=== PATIENT | female | born 1990 | race African-American/Black ===

== ENCOUNTER 2016-04-30 09:03 | Emergency (ER) | payer MEDICAID ==
[~2016-04-30] VITALS: Ht 165.1 cm; Wt 120.0 kg
[~2016-04-30 09:03] MED LIST: DICL50TA3 PO; IBUP600T26 PO; ROBA750T PO
[2016-04-30 09:05] VITALS: BP 135/67; PULSE 80; RESP 20; TEMP 98.1; O2SAT 99
--- NOTE | 2016-04-30 09:31 | PD ---
HPI Chief Complaint: Injury Time Seen by Provider: 09:26 Travel History International Travel<30 days: No Contact w/Intl Traveler<30days: No Traveled to known affect area: No History of Present Illness HPI 26-year-old female presents to the emergency department for evaluation of left shoulder pain that has been ongoing for over 2 months. Patient was seen approximately one month ago in the emergency Department was diagnosed with a muscle strain. She takes she took the diclofenac and Robaxin, but states that nothing works. She states the pain is worse with movement. She denies any specific injury, but states she does a lot of lifting in her job. The patient denies any fevers or chills. She has no loss of range of motion or loss of sensation. The patient has not taken anything [id number] for her pain since finishing the last prescriptions. She has not followed up outpatient with a physician. Patient denies any chance of . She has no chronic medical problems. Patient denies any chest pain. History Social History Alcohol Use: No Tobacco Use: No Allergies-Medications (Allergen,Severity, Reaction): Coded Allergies: No Known Allergies (Verified , 09/23/14) Reported Meds & Prescriptions Reported Meds & Active Scripts Active Robaxin (Methocarbamol) 750 Mg Tab 750 Mg PO QID PRN 2 tabs QID for 2 days, then 1 tab QID thereafter Diclofenac Sodium DR (Diclofenac Sodium) 50 Mg Tabdr 50 Mg PO BID Ibuprofen 600 Mg Tab 600 Mg PO Q8 PRN Review of Systems Except as stated in HPI: all other systems reviewed are Neg Physical Exam Narrative GENERAL: Well-developed well-nourished obese female patient, ambulatory. Afebrile. SKIN: Warm and dry. No erythema or warmth over left shoulder. HEAD: Normocephalic. Atraumatic. EYES: No scleral icterus. No injection or drainage. NECK: Supple, trachea midline. No JVD or lymphadenopathy. CARDIOVASCULAR: Regular rate and rhythm without murmurs, gallops, or rubs. Right radial pulses 2+. RESPIRATORY: Breath sounds equal bilaterally. No accessory muscle use. Lungs sounds are clear to auscultation. GASTROINTESTINAL: Abdomen soft, non-tender, nondistended. MUSCULOSKELETAL: No cyanosis, or edema. Patient has a normal grasp strength in the left hand. She has full range of motion of the left shoulder. The pain is easily reproduced with palpation and movement. Patient has full sensation the distal left upper extremity. Data Data Last Documented VS Vital Signs Date Time Temp Pulse Resp B/P Pulse Ox O2 Delivery O2 Flow Rate FiO2 04/30/16 09:05 98.1 80 20 135/67 99 Room Air [facility] Medical Screen Exam Complete: Yes Emergency Medical Condition: No Differential Diagnosis Muscle strain, chronic shoulder pain Narrative Course 26-year-old female presents to the emergency department for evaluation of left shoulder pain has been ongoing for several months. She has not followed up outpatient. She has been seen once the emergency department for this issue. Patient is not currently taking anything [id number]. There is no evidence of septic joint or acute injury. I instructed the patient on the need to follow up with a primary care physician or orthopedist for further workup. She is instructed to take [id number] ibuprofen as needed for pain, rest, warmth, elevate. A medical screening exam was performed: At the time of evaluation the presenting medical condition was determined not to be of an emergent nature. The patient was given the option of receiving additional care and opted to stay. Patient will be discharged with a prescription for ibuprofen. She is instructed on the need for outpatient follow up. She is to return for any acute , worsening of symptoms. Primary Impression: Trapezius muscle spasm Referrals: Orthopedist Primary Care Physician Patient Instructions: General Instructions, Muscle Strain (ED) Additional Instructions: Heating pad on low for 20 minutes 4-5 times daily. Take ibuprofen as instructed as needed with food for pain. Follow-up with a primary care physician or orthopedist for further evaluation. Return to the emergency department for any acute worsening of symptoms. Med/Other Pt SpecificInfo: Prescription(s) given Scripts Ibuprofen 600 Mg Poh825 Mg PO TID PRN (PAIN SCALE 1 TO 10) #21 TAB Ref 0 Prov:ChecoChey 04/30/16 Disposition: 01 DISCHARGE HOME Condition: Stable Checo,Chey CORADO Apr 30, 2016 09:31
[2016-04-30] MEDS ORDERED: IBUP-232 PO (09:38)
== END 2016-04-30 10:18 | disposition home or self-care (01) ==
LOC: NEPB 09:03
DX: M62.838 Other muscle spasm (principal)
CPT/HCPCS: 99283

== ENCOUNTER 2017-08-19 16:07 | Emergency (ER) | payer SELFPAY, MEDICAID ==
[2017-08-19] MEDS: TETANUS/DIPHTHERIA TOXOID ADULT 0.5 ML VIAL IM (16:38)
[2017-08-19] MEDS: IBUPROFEN 600 MG TAB PO (16:38)
== END 2017-08-19 17:36 | disposition home or self-care (01) ==
LOC: NEPK 16:07
DX: S93.602A Unspecified sprain of left foot, initial encounter (principal); S50.311A Abrasion of right elbow, initial encounter; S80.212A Abrasion, left knee, initial encounter; Z23 Encounter for immunization; W01.0XXA Fall on same level from slipping, tripping and stumbling without subsequent striking against object, initial encounter; Y93.83 Activity, rough housing and horseplay
CPT/HCPCS: 73564; 73610; 73630; 90471; 90714; 96372; 99283-25